=== PATIENT | female | born 1950 | race African-American/Black ===

== ENCOUNTER → 2016-08-24 | Outpatient (CLI) | payer MEDICARE, OTHER ==
[2015-05-05 12:54] VITALS: BP 104/54
[~2016-08-24] MED LIST: IBERSARTAN; MULT-667 PO
--- NOTE | 2016-08-24 11:18 | RAD ---
EXAM: Left axillary ultrasound. HISTORY: Palpable focus and pain in the left axilla. COMPARISON: None. FINDINGS: Sonographic abnormality evaluation of the left axilla was performed of the site of pain and palpable concern. This reveals only normal fatty and muscular tissue. There are no pathologically enlarged lymph nodes, inflammatory change or other mass. IMPRESSION: 1. No sonographic correlate for pain or a palpable focus. Ongoing clinical follow-up of symptoms is recommended.
== END | disposition home or self-care (01) ==
LOC: US 09:29
PROVIDERS: ATTEND Family Medicine
DX: M79.622 Pain in left upper arm (principal)
CPT/HCPCS: 76881

== ENCOUNTER → 2017-02-05 | Outpatient (CLI) | payer MEDICARE ==
[2015-05-05 12:54] VITALS: BP 104/54
--- NOTE | 2017-02-05 18:11 | KCIC ---
Bilateral digital screening mammograms: Reason for examination: Routine screening. Comparison is made to previous studies dated 02/04/2016 and 02/04/2015. The skin and nipples show no abnormalities. No abnormal axillary lymph nodes are seen. The breast parenchyma is heterogeneously dense. (Breast density: Category C.) There are no dominant masses, suspicious calcifications or architectural distortion. Impression: No evidence of malignancy. Recommend routine screening. Your patient's mammogram demonstrates that she has dense breast tissue (breast density category C or D), which could hide abnormalities, and if she has other risk factors for breast cancer that have been identified, she might benefit from supplemental screening tests that may be suggested by you as her ordering physician. Dense breast tissue, in and of itself, is a relatively common condition. Therefore, this information is not provided to cause undue concern, but rather to raise your awareness and to promote discussion with your patient regarding the presence of other risk factors, in addition to dense breast tissue. Your patient's mammography results will be sent to her. BI-RAD Category 1: Negative. "Our facility is accredited by the [employer] Mammography [employer]." This patient's information has been entered into a reminder system for the patient to be notified with the results of her examination and a target date for the next mammogram. Electronically signed by: Gracy Coulter MD (02/05/2017 6:07 PM) [facility]
== END | disposition home or self-care (01) ==
LOC: KCIC MAMMO 09:41
PROVIDERS: ATTEND Family Medicine
DX: Z12.31 Encounter for screening mammogram for malignant neoplasm of breast (principal)
CPT/HCPCS: G0202; 77067

== ENCOUNTER → 2018-03-14 | Outpatient (CLI) | payer MEDICARE ==
[2015-05-05 12:54] VITALS: BP 104/54
--- NOTE | 2018-03-14 11:10 | KCIC ---
Bilateral digital screening mammograms with 3-D tomosynthesis: Reason for examination: Routine screening. Comparison is made to previous studies dated 02/05/2017 and 02/04/2016. Bilateral mammograms in CC and oblique projections were obtained with 2-D imaging and 3-D tomosynthesis imaging on a Siemens Inspiration unit and reviewed on the workstation. Interpretation was made with the benefit of CAD. The skin and nipples show no abnormalities. No abnormal axillary lymph nodes are seen. The breast parenchyma is heterogeneously dense. (Breast density: Category C.) There are no dominant masses, suspicious calcifications or architectural distortion. Impression: No evidence of malignancy. Recommend routine screening. Your patient's mammogram demonstrates that she has dense breast tissue (breast density category C or D), which could hide abnormalities, and if she has other risk factors for breast cancer that have been identified, she might benefit from supplemental screening tests that may be suggested by you as her ordering physician. Dense breast tissue, in and of itself, is a relatively common condition. Therefore, this information is not provided to cause undue concern, but rather to raise your awareness and to promote discussion with your patient regarding the presence of other risk factors, in addition to dense breast tissue. Your patient's mammography results will be sent to her. BI-RAD Category 1: Negative. "Our facility is accredited by the [employer] Mammography [employer]." This patient's information has been entered into a reminder system for the patient to be notified with the results of her examination and a target date for the next mammogram. Electronically signed by: Gracy Coulter MD (03/14/2018 11:07 AM) [facility]
== END | disposition home or self-care (01) ==
LOC: KCIC MAMMO 07:36
PROVIDERS: ATTEND Family Medicine
DX: Z12.31 Encounter for screening mammogram for malignant neoplasm of breast (principal); K21.9 Gastro-esophageal reflux disease without esophagitis; I10 Essential (primary) hypertension; E78.00 Pure hypercholesterolemia, unspecified
CPT/HCPCS: 77063; 77067

== ENCOUNTER → 2019-03-17 | Outpatient (CLI) | payer MEDICARE ==
[2015-05-05 12:54] VITALS: BP 104/54
--- NOTE | 2019-03-17 14:01 | KCIC ---
Bilateral digital screening mammograms with 3-D tomosynthesis: Reason for examination: Routine screening. Comparison is made to previous studies dated 03/14/2018 and 02/05/2017. Bilateral mammograms in CC and oblique projections were obtained with 2-D imaging and 3-D tomosynthesis imaging on a Siemens Inspiration unit and reviewed on the workstation. Interpretation was made with the benefit of CAD. The skin and nipples show no abnormalities. No abnormal axillary lymph nodes are seen. The breast parenchyma is heterogeneously dense. (Breast density: Category C.) There there is a small intramammary lymph node at the 3:00 B position of the left breast. There are no other dominant masses, suspicious calcifications or architectural distortion. Impression: No evidence of malignancy. Recommend routine screening. Your patient's mammogram demonstrates that she has dense breast tissue (breast density category C or D), which could hide abnormalities, and if she has other risk factors for breast cancer that have been identified, she might benefit from supplemental screening tests that may be suggested by you as her ordering physician. Dense breast tissue, in and of itself, is a relatively common condition. Therefore, this information is not provided to cause undue concern, but rather to raise your awareness and to promote discussion with your patient regarding the presence of other risk factors, in addition to dense breast tissue. Your patient's mammography results will be sent to her. BI-RAD Category 2: Benign. "Our facility is accredited by the [employer] Mammography [employer]." This patient's information has been entered into a reminder system for the patient to be notified with the results of her examination and a target date for the next mammogram. Electronically signed by: Gracy Coulter MD (03/17/2019 1:58 PM) [facility]
== END | disposition home or self-care (01) ==
LOC: KCIC MAMMO 10:25
PROVIDERS: ATTEND Family Medicine
DX: Z12.31 Encounter for screening mammogram for malignant neoplasm of breast (principal); N64.89 Other specified disorders of breast
CPT/HCPCS: 77063; 77067

== ENCOUNTER → 2020-03-08 | Outpatient (CLI) | payer MEDICARE ==
[2015-05-05 12:54] VITALS: BP 104/54
--- NOTE | 2020-03-08 20:17 | KCIC ---
Bilateral digital screening mammograms with 3-D tomosynthesis: Reason for examination: Routine screening. Comparison is made to previous studies dated back to 02/04/2016. Bilateral mammograms in CC and oblique projections were obtained with 2-D imaging and 3-D tomosynthesis imaging on a Siemens Inspiration unit and reviewed on the workstation. Interpretation was made with the benefit of CAD. The skin and nipples show no abnormalities. No abnormal axillary lymph nodes are seen. The breast parenchyma is heterogeneously dense. (Breast density: Category C.) There appears to be a small circumscribed nodule at the 9:30 position anteriorly in the right breast approximately 4.5 cm from the nipple and measuring 5 mm in size. Recommend further evaluation with ultrasound. There are no other new dominant masses, suspicious calcifications or architectural distortion. Impression: Small nodule at the 9:30 position of the right breast 4.5 cm from the nipple. Recommend further evaluation with ultrasound. Your patient's mammogram demonstrates that she has dense breast tissue (breast density category C or D), which could hide abnormalities, and if she has other risk factors for breast cancer that have been identified, she might benefit from supplemental screening tests that may be suggested by you as her ordering physician. Dense breast tissue, in and of itself, is a relatively common condition. Therefore, this information is not provided to cause undue concern, but rather to raise your awareness and to promote discussion with your patient regarding the presence of other risk factors, in addition to dense breast tissue. Your patient's mammography results will be sent to her. BI-RAD Category 0: Incomplete. Needs additional imaging evaluation. "Our facility is accredited by the [employer] Mammography Program." This patient's information has been entered into a reminder system for the patient to be notified with the results of her examination and a target date for the next mammogram. Electronically signed by: Gracy Coulter MD (03/08/2020 8:14 PM) [id number]
== END | disposition home or self-care (01) ==
LOC: KCIC MAMMO 12:25
PROVIDERS: ATTEND Family Medicine
DX: Z12.31 Encounter for screening mammogram for malignant neoplasm of breast (principal); N64.89 Other specified disorders of breast
CPT/HCPCS: 77063; 77067

== ENCOUNTER → 2020-03-15 | Outpatient (CLI) | payer MEDICARE ==
[2015-05-05 12:54] VITALS: BP 104/54
--- NOTE | 2020-03-15 08:39 | RAD ---
Examination: Limited right breast ultrasound. INDICATION: Screening recall for nodularity in the lateral right breast. COMPARISON: Bilateral screening mammogram of 03/08/2020 FINDINGS: Targeted ultrasound of the lateral right breast reveals a parallel orientation bilobed cystic structure in the antiradial orientation of the 9:30 o'clock position 4.5 cm from the nipple that likely correlates with the mammographic finding recalled from screening. Each lobe measures approximately 3.5 mm wide and 2 mm deep. There are low-level internal echoes in it (best appreciated on sonographic image 3 of 16). IMPRESSION: Probably benign cysts in the lateral right breast. Recommend 6 month follow-up right mammogram with possible ultrasound. BI-RADS Category 3 Probably benign findings Electronically signed by: Emely Hansen MD (03/15/2020 8:36 AM) [id number]
== END | disposition home or self-care (01) ==
LOC: US 08:34
PROVIDERS: ATTEND Family Medicine
DX: R92.8 Other abnormal and inconclusive findings on diagnostic imaging of breast (principal); N60.01 Solitary cyst of right breast
CPT/HCPCS: 76641